=== PATIENT | female | born 1990 | race African-American/Black ===

== ENCOUNTER 2020-05-25 09:04 | Emergency (ER) | payer MEDICAID ==
[~2020-05-25] VITALS: Ht 170.2 cm; Wt 73.9 kg
[2020-05-25 09:10] VITALS: BP 130/84; Ht 170.2 cm; Wt 73.9 kg
== END 2020-05-25 11:18 | disposition home or self-care (01) ==
LOC: ED 09:04
DX: S42.392A Other fracture of shaft of left humerus, initial encounter for closed fracture (principal); X58.XXXA Exposure to other specified factors, initial encounter; Y93.89 Activity, other specified; Y92.89 Other specified places as the place of occurrence of the external cause; Y99.8 Other external cause status